=== PATIENT | female | born 1965 | race Caucasian/White ===

== ENCOUNTER 2017-11-30 20:21 | Emergency (ER) | payer MEDICAID ==
[2017-11-30 23:20] LABS: ADD MAN DIFF? NO
[2017-11-30 23:23] LABS: BASOPHILS % 0.3 % (0.0-2.0); EOSINOPHILS # 0.2 10^3/ul (0.0-0.5); EOSINOPHILS % 1.7 % (0.0-7.0); HEMATOCRIT 40.1 % (37.0-47.0); HEMOGLOBIN 13.3 g/dl (12.0-16.0); LYMPHOCYTES # 2.2 10^3/ul (0.8-2.9); LYMPHOCYTES % 18.6 % (15.0-51.0); MEAN CORPUSCULAR HEMOGLOBIN 27.3 pg (29.0-33.0); MEAN CORPUSCULAR HGB CONC 33.2 g/dl (32.0-37.0); MEAN CORPUSCULAR VOLUME 82.2 fl (82.0-101.0); MEAN PLATELET VOLUME 10.1 fl (7.4-10.4); MONOCYTE # 0.9 10^3/ul (0.3-0.9); MONOCYTES % 7.4 % (0.0-11.0); NEUTROPHIL # 8.5 10^3/ul (1.6-7.5); NEUTROPHILS % 71.5 % (39.0-77.0); PLATELET COUNT 316 10^3/UL (140-415); RED BLOOD COUNT 4.88 10^6/ul (4.20-5.40); RED CELL DISTRIBUTION WIDTH 13.6 % (11.5-14.5)
[2017-11-30 23:43] LABS: ANION GAP 14 (8-16); BLOOD UREA NITROGEN 12 mg/dl (7-20); CARBON DIOXIDE 28 mmol/L (21-31); CHLORIDE 106 mmol/L (97-110); CREATININE 0.66 mg/dl (0.44-1.00); GLUCOSE 130 mg/dl (70-220); POTASSIUM 4.1 mmol/L (3.5-5.1); SODIUM 144 mmol/L (135-144)
[2017-11-30 23:54] LABS: TROPONIN-I < 0.012 ng/ml (0.00-0.12)
== END 2017-12-01 00:50 | disposition home or self-care (01) ==
LOC: E/R 12-01 00:50
DX: F41.9 Anxiety disorder, unspecified (principal); R00.2 Palpitations
CPT/HCPCS: 36415; 71045; 80048; 84484; 85025; 93005; 99285-25

== ENCOUNTER 2018-11-23 19:40 | Inpatient (IN) | payer MEDICAID ==
[2018-11-23 21:28] LABS: ADD MAN DIFF? NO
[2018-11-23 21:30] LABS: WHITE BLOOD COUNT 10.1 10^3/ul (4.8-10.8)
[2018-11-23 21:30] LABS: BASOPHILS % 0.4 % (0.0-2.0); EOSINOPHILS # 0.2 10^3/ul (0.0-0.5); EOSINOPHILS % 2.1 % (0.0-7.0); HEMATOCRIT 41.2 % (37.0-47.0); HEMOGLOBIN 13.6 g/dl (12.0-16.0); LYMPHOCYTES # 3.2 10^3/ul (0.8-2.9); MEAN CORPUSCULAR HEMOGLOBIN 27.6 pg (29.0-33.0); MEAN CORPUSCULAR VOLUME 83.6 fl (82.0-101.0); MONOCYTE # 0.8 10^3/ul (0.3-0.9); MONOCYTES % 7.4 % (0.0-11.0); NEUTROPHIL # 5.8 10^3/ul (1.6-7.5); NEUTROPHILS % 57.6 % (39.0-77.0); PLATELET COUNT 321 10^3/UL (140-415); RED BLOOD COUNT 4.93 10^6/ul (4.20-5.40); RED CELL DISTRIBUTION WIDTH 13.8 % (11.5-14.5)
[2018-11-23] MEDS: PANTOPRAZOLE IV 80 MG in SOD CHLORIDE 0.9% 100 ML IV (21:32)
[2018-11-23] MEDS: PANTOPRAZOLE IV 80 MG in SOD CHLORIDE 0.9% 100 ML IVPB (21:33)
[2018-11-23 21:51] LABS: INR 0.86; PROTIME 11.8 Sec (11.9-14.9); PT RATIO 0.9
[2018-11-23 21:52] LABS: ALANINE AMINOTRANSFERASE 22 IU/L (13-69); ALBUMIN/GLOBULIN RATIO 1.11; ALKALINE PHOSPHATASE 150 IU/L (42-121); ANION GAP 6 (5-13); ASPARTATE AMINO TRANSFERASE 22 IU/L (15-46); BILIRUBIN,INDIRECT 0.2 mg/dl (0-1.1); BILIRUBIN,TOTAL 0.2 mg/dl (0.2-1.3); BLOOD UREA NITROGEN 12 mg/dl (7-20); CALCIUM 10.2 mg/dl (8.4-10.2); CARBON DIOXIDE 29 mmol/L (21-31); CHLORIDE 105 mmol/L (97-110); CREATININE 0.52 mg/dl (0.44-1.00); Estimated GFR > 60 mL/min (>60); GLUCOSE 113 mg/dl (70-220); PARTIAL THROMBOPLASTIN TIME 28.5 Sec (23.0-35.0); POTASSIUM 4.1 mmol/L (3.5-5.1); SODIUM 140 mmol/L (135-144); TOTAL PROTEIN 7.6 g/dl (6.1-8.1)
[2018-11-23] MEDS: ACETAMINOPHEN 325 MG TAB PO (22:00)
[2018-11-23 22:02] LABS: TROPONIN-I < 0.012 ng/ml (0.000-0.120)
[2018-11-23] MEDS ORDERED: ACETAMINOPHEN 325 MG TAB PO (22:30)
[2018-11-23] MEDS ORDERED: ONDANSETRON 4 MG INJ IV (23:30)
[2018-11-23] MEDS ORDERED: NACL 0.9% 3 ML SYG IV (23:30)
[2018-11-24] MEDS: morphine 2 MG INJ IV ×3 (00:38→23:22)
[2018-11-24] MEDS: DEXTROSE 5%-0.45% NACL 1,000 ML IV ×4 (00:39→21:34)
[2018-11-24 05:37] LABS: ADD MAN DIFF? NO
[2018-11-24 05:47] LABS: BASOPHILS % 0.3 % (0.0-2.0); EOSINOPHILS # 0.3 10^3/ul (0.0-0.5); HEMATOCRIT 39.9 % (37.0-47.0); HEMOGLOBIN 12.8 g/dl (12.0-16.0); MEAN CORPUSCULAR HEMOGLOBIN 26.9 pg (29.0-33.0); MEAN CORPUSCULAR HGB CONC 32.1 g/dl (32.0-37.0); MEAN CORPUSCULAR VOLUME 83.8 fl (82.0-101.0); MEAN PLATELET VOLUME 10.2 fl (7.4-10.4); MONOCYTE # 0.6 10^3/ul (0.3-0.9); MONOCYTES % 7.1 % (0.0-11.0); NEUTROPHILS % 56.2 % (39.0-77.0); PLATELET COUNT 320 10^3/UL (140-415); RED BLOOD COUNT 4.76 10^6/ul (4.20-5.40); RED CELL DISTRIBUTION WIDTH 13.8 % (11.5-14.5)
[2018-11-24 06:04] LABS: ALANINE AMINOTRANSFERASE 21 IU/L (13-69); ALBUMIN 3.6 g/dl (3.3-4.9); ALBUMIN/GLOBULIN RATIO 1.12; ALKALINE PHOSPHATASE 117 IU/L (42-121); ANION GAP 8 (5-13); ASPARTATE AMINO TRANSFERASE 24 IU/L (15-46); BILIRUBIN,INDIRECT 0.4 mg/dl (0-1.1); BILIRUBIN,TOTAL 0.4 mg/dl (0.2-1.3); BLOOD UREA NITROGEN 11 mg/dl (7-20); CALCIUM 9.6 mg/dl (8.4-10.2); CARBON DIOXIDE 30 mmol/L (21-31); CHLORIDE 104 mmol/L (97-110); CREATININE 0.49 mg/dl (0.44-1.00); Estimated GFR > 60 mL/min (>60); GLUCOSE 120 mg/dl (70-220); MAGNESIUM 2.1 mg/dl (1.7-2.5); PHOSPHORUS 3.5 mg/dl (2.5-4.9); POTASSIUM 3.8 mmol/L (3.5-5.1); SODIUM 142 mmol/L (135-144); TOTAL PROTEIN 6.8 g/dl (6.1-8.1)
[2018-11-24] MEDS: PANTOPRAZOLE 40 MG INJ IV ×2 (06:16→18:18)
[2018-11-24] MEDS: LIDOCAINE/MYLANTA 40 ML BTL PO (10:00)
[2018-11-24] MEDS: ONDANSETRON 4 MG INJ IV (18:23)
[2018-11-25] MEDS: PANTOPRAZOLE 40 MG INJ IV ×2 (05:21→19:00)
[2018-11-25] MEDS: DEXTROSE 5%-0.45% NACL 1,000 ML IV ×2 (07:31→18:56)
[2018-11-25] MEDS: POLYETHYLENE GLYCOL 17 GM PACKET PO (18:55)
[2018-11-25] MEDS: morphine 2 MG INJ IV (19:44)
[2018-11-25] MEDS: DOCUSATE SODIUM 100 MG CAP PO (21:22)
[2018-11-26] MEDS: DEXTROSE 5%-0.45% NACL 1,000 ML IV ×2 (06:10→18:13)
[2018-11-26] MEDS: PANTOPRAZOLE 40 MG INJ IV ×2 (06:10→18:13)
[2018-11-26] MEDS: DOCUSATE SODIUM 100 MG CAP PO ×2 (09:23→22:24)
[2018-11-27] MEDS: DEXTROSE 5%-0.45% NACL 1,000 ML IV ×2 (05:40→17:29)
[2018-11-27] MEDS: PANTOPRAZOLE 40 MG INJ IV ×2 (06:09→18:21)
[2018-11-27] MEDS: DOCUSATE SODIUM 100 MG CAP PO ×2 (09:10→21:01)
[2018-11-27] MEDS ORDERED: LIDOCAINE 100 MG SYRINGE (13:31)
[2018-11-27] MEDS ORDERED: PROPOFOL 40 ML (13:31)
[2018-11-28] MEDS: DEXTROSE 5%-0.45% NACL 1,000 ML IV ×2 (03:29→13:29)
[2018-11-28] MEDS: PANTOPRAZOLE 40 MG INJ IV (05:13)
[2018-11-28] MEDS: DOCUSATE SODIUM 100 MG CAP PO (09:26)
== END 2018-11-28 14:50 | disposition home or self-care (01) | DRG 378 ==
LOC: E/R 19:40 → MS1 22:30
PROC: 0DJ08ZZ Inspection of Upper Intestinal Tract, Via Natural or Artificial Opening Endoscopic (ICD-10-PCS; principal; 2018-11-27 11:30)
DX: K29.71 Gastritis, unspecified, with bleeding (principal); Z68.42 Body mass index [BMI] 45.0-49.9, adult; E66.01 Morbid (severe) obesity due to excess calories; Z71.3 Dietary counseling and surveillance; K59.00 Constipation, unspecified; I10 Essential (primary) hypertension; K44.9 Diaphragmatic hernia without obstruction or gangrene; Z90.49 Acquired absence of other specified parts of digestive tract; Z88.0 Allergy status to penicillin; Z86.73 Personal history of transient ischemic attack (TIA), and cerebral infarction without residual deficits
CPT/HCPCS: 36415; 74176; 80053; 83735; 84100; 84484; 85025; 85610; 85730; 86850; 86900; 86901; 93005; 96365; 96376; 99285-25